=== PATIENT | female | born 1970 | race Caucasian/White ===

== ENCOUNTER 2017-01-30 | Emergency (ER) | payer OTHER ==
[~2017-01-30] VITALS: Ht 152.4 cm; Wt 45.4 kg
[~2017-01-30] MED LIST: CIPRO PO; DICLOFENAC PO; IBUPROFEN PO; IBUPROFEN600 MG PO; NO MEDICATIONS; POLYSPORIN15 GM TOP; PYRIDIUM PO; TYLENOL #3 PO; VICODIN 5/1 TAB 5/50 PO; ZOFRANODT SL
== END 2017-01-30 00:47 | disposition home or self-care (01) ==
LOC: SED
DX: K02.9 Dental caries, unspecified (principal); F17.200 Nicotine dependence, unspecified, uncomplicated
CPT/HCPCS: 99282